=== PATIENT | female | born 1990 | race Caucasian/White ===

== ENCOUNTER 2017-06-02 22:15 | Emergency (ER) | payer OTHER ==
[~2017-06-02] VITALS: Ht 170.2 cm; Wt 68.0 kg
--- NOTE | 2017-06-02 23:04 | ED HEAD/FACIAL INJ COMPLAINT ---
History of Present Illness General Chief Complaint: Fall Stated Complaint: FACE INJURY S/P FALL Source: patient Exam Limitations: no limitations Vital Signs & Intake/Output Vital Signs & Intake/Output Vital Signs Date Time Temp Pulse Resp B/P B/P Pulse O2 O2 Flow FiO2 Mean Ox Delivery Rate 06/02 2231 96.8 97 18 137/89 100 Room Air ED Intake and Output 06/03 0000 06/02 1200 Intake Total Output Total Balance Patient 150 lb Weight Weight Reported by Patient Measurement Method Allergies Coded Allergies: Penicillins (PEDIATRIC 06/02/17) Sulfa (Sulfonamide Antibiotics) (PEDIATRIC 06/02/17) amoxicillin (PEDIATRIC 06/02/17) Triage Note: TRIAGE: PATIENT TO ER FROM HOME S/P SLIP AND FALL ON ICE 10 MINUTES AGO, NOTED W/ APPROX 6 CM LENGTH, 4 CM WIDTH W/ SUPERFICIAL SCRAPING ON SKIN. PATIENT NOTED W/ BLOOD TO R CORNER OF MOUTH W/ BROKEN TEETH, STATES "I HAVE VENEARS TO THEY MUST HAVE COME OFF." PATIENT REPORTING 5/10 HEADACHE AND MOUTH PAIN. ICE PACK APPLIED TO FOREHEAD. PATIENT REPORTS HAD 3 GLASSES OF WINE W/ DINNER. Triage Nurses Notes Reviewed? yes Onset: Abrupt Severity: moderate, severe Location: frontal Method of Injury: direct blow, fall Loss of Consciousness: no loss of consciousness : No Patient currently breastfeeds: No HPI: 26-year-old female comes into the emergency room for further evaluation after slipping and falling on the ice outside. Patient was at [place] having dinner. She had a couple glasses of wine. She symptoms the ice and fell and hit her head. Denies any loss of consciousness. Denies any vomiting. Swelling to the right side of the face. She also has some right knee pain. Denies any neck pain. (Jalil Mcfarland) Past History Travel History Traveled to [place] past 21 day No Medical History Any Pertinent Medical History? 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 No (Jalil Mcfarland) Review of Systems Review of Systems Constitutional: Reports: no symptoms. EENTM: Reports: see HPI. Respiratory: Reports: no symptoms. Cardiovascular: Reports: no symptoms. GI: Reports: no symptoms. Genitourinary: Reports: no symptoms. Musculoskeletal: Reports: see HPI. Skin: Reports: no symptoms. Neurological/Psychological: Reports: no symptoms. Hematologic/Endocrine: Reports: no symptoms. Immunologic/Allergic: Reports: no symptoms. All Other Systems: Reviewed and Negative (Jalil Mcfarland) Physical Exam Physical Exam General Appearance: well developed/nourished, mild distress Head: swelling (right orbit), tenderness (right orbit) Eyes: Bilateral: normal appearance, PERRL, EOMI. Ears, Nose, Throat: normal pharynx, normal ENT inspection, hearing grossly normal Neck: normal inspection, supple, full range of motion, no midline tenderness Respiratory: normal breath sounds, no respiratory distress Back: normal inspection Extremities: lIMITED RANGE OF MOTION OF RIGHT KNEE, SOFT TISSUE TENDERNESS Psychiatric: awake, alert, oriented x 3 Cranial Nerves: normal hearing, normal speech, PERRL Coordination/Gait: normal gait Motor/Sensory: no motor/sensory deficits Skin: intact, normal color, warm/dry Lymphatic: no anterior cervical oswald (Jalil Mcfarland) Progress Differential Diagnosis: c-spine injury, facial fracture, globe injury, ICH, orbit fracture, skull fracture Plan of Care: Orders Procedure Date/time Status URINE 06/02 2303 Complete Laboratory Tests 06/02/17 2336: Urine Test NEGATIVE Diagnostic Imaging: Viewed by Me: Radiology Read, CT Scan. Discussed w/RAD: Radiology Read, CT Scan. Radiology Impression: PATIENT: ELVIRA MADDEN PRESENT AGE: 26 PATIENT ACCOUNT NO: [id number] : 89 LOCATION: [facility] ORDERING PHYSICIAN: Jalil WORKMAN SERVICE DATE: 06/02/17 EXAM TYPE : RAD - XRY-KNEE COMPLETE RIGHT EXAMINATION: XR KNEE, RIGHT CLINICAL INFORMATION : Right knee pain. Fall. COMPARISON: None TECHNIQUE: Four views of the right knee. FINDINGS: Bones and soft tissues are normal. No fracture or joint effusion. Alignment is anatomic. Joint spaces are well maintained. No abnormal soft tissue calcification. IMPRESSION: Normal right knee. DICTATED BY: Jai Zhou MD DATE/TIME DICTATED:06/03/1744 HOUSEKEEPING SUPERVISOR:DALTON DATE/TIME TRANSCRIBED:06/03/1744 CONFIDENTIAL, DO NOT COPY WITHOUT APPROPRIATE AUTHORIZATION. <Electronically signed in Other Vendor System> SIGNED BY: Jai Zhou MD 06/03/1748, PATIENT: ELVIRA MADDEN PRESENT AGE: 26 PATIENT ACCOUNT NO: [id number] : 89 LOCATION: [facility] ORDERING PHYSICIAN: Jalil WORKMAN SERVICE DATE: 06/02/17 EXAM TYPE : CAT - CT HEAD WO IV CONTRAST; CT MAXILLOFACIAL W/O CON EXAMINATION: CT HEAD WITHOUT CONTRAST CT FACIAL BONES WITHOUT CONTRAST CLINICAL INFORMATION: Trauma. Hit face. Swelling. COMPARISON: None. TECHNIQUE: Imaging was performed from the skull base to vertex without intravenous administration of contrast. In addition , helical noncontrast CT imaging was acquired through the facial bones and source images were reviewed along with axial reconstructions and sagittal and coronal MPRs. DLP: 1229.05 mGy-cm FINDINGS: HEAD: No intracranial mass, hemorrhage, or midline shift is visualized. The ventricles and sulci are age- appropriate. No extra-axial collections are identified. FACIAL BONES: There is soft tissue swelling over the right orbit and right frontal bone. The orbital globes and retrobulbar structures are intact. There is no facial bone fracture. No orbital fracture. Paranasal sinuses are normally aerated. Mandible and TMJ joints are normal. IMPRESSION: No acute intracranial process or discrete facial bone fracture. There is soft tissue swelling over the right orbit and frontal bone. DICTATED BY: Jai Zhou MD DATE/TIME DICTATED:06/03/1740 HOUSEKEEPING SUPERVISOR:DALTON DATE/TIME TRANSCRIBED:06/03/1740 CONFIDENTIAL, DO NOT COPY WITHOUT APPROPRIATE AUTHORIZATION. <Electronically signed in Other Vendor System> SIGNED BY: Jai Zhou MD 06/03/1746 Comments: 06/02/17 Patient is nontoxic-appearing. She is clinically sober. She does not appear to be an intoxicated. No acute findings and workup. She has no complaints of neck pain. No signs of trauma anywhere else. Ice. Rest. Follow-up with PCP as needed. Return if any other concerns. Cautioned on red flags concerning to return to the ER immediately if any other concerns. (Jalil Mcfarland) Departure Departure Disposition: HOME OR SELF CARE Condition: Stable Clinical Impression Primary Impression: Head injury Secondary Impressions: Contusion of face, Right knee pain Referrals: Krysten HUDDLESTON,Gerald (PCP/Family) Additional Instructions: Ibuprofen. Ice. Return if any concerns worsening symptoms. Please go over all results of today's visit with your primary care doctor. Contact your primary care doctor to let them know you were here in the emergency room. There may be nonspecific findings which may not be related to your visit today here in the emergency room but may require further evaluation and chronic monitoring by your primary care doctor. If you had a laceration today the chance of foreign body always remains. You should follow-up with your primary care doctor for recheck in 3-5 days for a wound check. If you had an x-ray done there is a chance that a fracture could have been missed on initial read and you should follow-up with your primary care doctor for repeat x-rays if symptoms persist. If your blood pressure was elevated here in the emergency room please have rechecked by [facility] primary care doctor within the next 48. If you were prescribed a narcotic here in the emergency room or any type of controlled substances you're not allowed to drive while taking this medication or operate any type of heavy machinery. Narcotics can make you feel lightheaded dizziness nausea and can cause constipation. You may need to peanut picker a stool softener. Thank you for choosing [facility] emergency room. Please return to the emergency room immediately if you have any other concerns worsening of symptoms. Departure Forms: Customer Survey General Discharge Information (Jalil Mcfarladn) PA/SENIOR INSPECTOR Co-Sign Statement Statement: ED Attending supervision documentation- [] I saw and evaluated the patient. I have also reviewed all the pertinent lab results and diagnostic results. I agree with the findings and the plan of care as documented in the PA's/SENIOR INSPECTOR's documentation. [X] I have reviewed the ED Record and agree with the PA's/SENIOR INSPECTOR's documentation. [] Additions or exceptions (if any) to the PAs/SENIOR INSPECTOR's note and plan are summarized below: [] (Digna HUDDLESTON,Jared Fink)
--- NOTE | 2017-06-03 00:47 | CT SCAN REPORT ---
EXAMINATION: CT HEAD WITHOUT CONTRAST CT FACIAL BONES WITHOUT CONTRAST CLINICAL INFORMATION: Trauma. Hit face. Swelling. COMPARISON: None. TECHNIQUE: Imaging was performed from the skull base to vertex without intravenous administration of contrast. In addition, helical noncontrast CT imaging was acquired through the facial bones and source images were reviewed along with axial reconstructions and sagittal and coronal MPRs. DLP: 1229.05 mGy-cm FINDINGS: HEAD: No intracranial mass, hemorrhage, or midline shift is visualized. The ventricles and sulci are age-appropriate. No extra-axial collections are identified. FACIAL BONES: There is soft tissue swelling over the right orbit and right frontal bone. The orbital globes and retrobulbar structures are intact. There is no facial bone fracture. No orbital fracture. Paranasal sinuses are normally aerated. Mandible and TMJ joints are normal. IMPRESSION: No acute intracranial process or discrete facial bone fracture. There is soft tissue swelling over the right orbit and frontal bone.
--- NOTE | 2017-06-03 00:49 | RADIOLOGY REPORT ---
EXAMINATION: XR KNEE, RIGHT CLINICAL INFORMATION: Right knee pain. Fall. COMPARISON: None TECHNIQUE: Four views of the right knee. FINDINGS: Bones and soft tissues are normal. No fracture or joint effusion. Alignment is anatomic. Joint spaces are well maintained. No abnormal soft tissue calcification. IMPRESSION: Normal right knee.
[2017-06-03 00:57] VITALS: BP 126/82
== END 2017-06-03 00:59 ==
LOC: ERH 22:15
DX: S09.90XA Unspecified injury of head, initial encounter (principal); S00.83XA Contusion of other part of head, initial encounter; M25.561 Pain in right knee; W00.0XXA Fall on same level due to ice and snow, initial encounter; Y92.9 Unspecified place or not applicable; Y93.9 Activity, unspecified
CPT/HCPCS: 73562-RT; 81025